=== PATIENT | female | born 1995 | race American Indian/Alaskan Native ===

== ENCOUNTER 2017-10-20 17:57 | Emergency (ER) | payer SELFPAY ==
[2017-10-20 19:15] LABS: Basophils % (Auto) 0.6 % (0.0-1.8); Eosinophils % (Auto) 1.2 % (0.0-4.3); Hematocrit 39.3 % (30.3-42.9); Hemoglobin 13.3 gm/dl (10.1-14.3); Mean Corpuscular HGB Conc 34 % (30-34); Mean Corpuscular Hemoglobin 33 pg (28-32); Mean Corpuscular Volume 97 fl (79-97); Platelet Count 273 K/mm3 (140-440); Red Blood Count 4.07 M/mm3 (3.65-5.03); Red Cell Distribution Width 13.5 % (13.2-15.2); White Blood Count 6.3 K/mm3 (4.5-11.0)
[2017-10-20 19:30] LABS: Alanine Aminotransferase 11 units/L (7-56); Albumin 4.5 g/dL (3.9-5); Albumin/Globulin Ratio 1.2 %; Alkaline Phosphatase 40 units/L (35-129); Anion Gap 18 mmol/L; BUN/Creatinine Ratio 20; Blood Urea Nitrogen 10 mg/dL (7-17); Calcium 9.4 mg/dL (8.4-10.2); Carbon Dioxide 24 mmol/L (22-30); Chloride 97.6 mmol/L (98-107); Glucose 84 mg/dL (65-100); Lipase 22 units/L (13-60); Sodium 136 mmol/L (137-145); Total Protein 8.4 g/dL (6.3-8.2)
[2017-10-20 19:36] LABS: Bilirubin,Urine NEG (Negative); Blood,Urine NEG (Negative); Ketones,Urine TR mg/dL (Negative); Leukocyte Esterase,Urine NEG (Negative); Mucus,Urine 3+ /HPF; Nitrite,Urine NEG (Negative); Protein,Urine <15 mg/dL mg/dL (Negative); Urobilinogen,Urine < 2.0 mg/dL (<2.0); WBC,Urine < 1.0 /HPF (0.0-6.0)
[2017-10-20] MEDS ORDERED: TYLENOL PO ONE (23:05)
[2017-10-20] MEDS ORDERED: TYLENOL ONE (23:08)
[2017-10-21] MEDS ORDERED: NACL 0.9% 1000 ML 1,000 ML IV ONE (03:50)
--- NOTE | 2017-10-21 05:35 | Emergency Department Report ---
ED General Adult HPI - General Chief complaint: Abdominal Pain Stated complaint: ABDOMINAL PAIN Time Seen by Provider: 10/21/17 03:22 Source: patient Mode of arrival: Ambulatory Limitations: No Limitations - History of Present Illness Initial comments: She is a 22-year-old female past medical history of appendicitis who presents with with left flank pain and lower pubic pain that has been going on for last 2 weeks. Patient states that her pelvic pain has been intermittent she denies any dysuria or any vaginal discharge. She has no nausea or vomiting she says that her lower abdominal pain as a 6 out of 10 as an achy type of pain nothing makes it better or worse. Patient states that she is sexually active she sometimes uses protection. She denies any fever or chills. Severity scale (0 -10): 7 - Related Data Previous Rx's Medication Instructions Recorded Last Taken Type HYDROcodone/APAP 5-325 [[place] 1 each PO Q4H PRN #40 tablet 04/04/16 Unknown Rx 5-325 mg TAB] Prochlorperazine [Compazine] 10 mg PO Q6H PRN #30 tablet 04/04/16 Unknown Rx Naproxen 250 mg PO BID #20 tablet 10/21/17 Unknown Rx Ondansetron [Zofran Odt] 4 mg PO Q8HR #15 tab.rapdis 10/21/17 Unknown Rx Allergies Allergy/AdvReac Type Severity Reaction Status Date / Time No Known Allergies Allergy Unverified 07/09/15 13:29 ED Review of Systems ROS: Stated complaint: ABDOMINAL PAIN Other details as noted in HPI Constitutional: denies: chills, fever Eyes: denies: eye pain, eye discharge, vision change ENT: denies: ear pain, throat pain Respiratory: denies: cough, shortness of breath, wheezing Cardiovascular: denies: chest pain, palpitations Endocrine: no symptoms reported Gastrointestinal: abdominal pain. denies: nausea, diarrhea Genitourinary: denies: urgency, dysuria, discharge Musculoskeletal: denies: back pain, joint swelling, arthralgia Skin: denies: rash, lesions Neurological: denies: headache, weakness, paresthesias Psychiatric: denies: anxiety, depression Hematological/Lymphatic: denies: easy bleeding, easy bruising ED Past Medical Hx - Past Medical History Hx Hypertension: No Hx Heart Attack/AMI: No Hx Congestive Heart Failure: No Hx Diabetes: No Hx Seizures: No Hx Psychiatric Treatment: Yes (ANXIETY, DEPRESSION) Hx Asthma: No Hx COPD: No Hx HIV: No Additional medical history: IRREGULAR HEART RATE - Surgical History Past Surgical History?: Yes Hx Appendectomy: Yes (2014) Additional Surgical History: abortions x 2 - Social History Smoking Status: Current Some Day Smoker Substance Use Type: Alcohol - Medications Home Medications: Home Medications Medication Instructions Recorded Confirmed Last Taken Type HYDROcodone/APAP 5-325 [[place] 1 each PO Q4H PRN #40 tablet 04/04/16 Unknown Rx 5-325 mg TAB] Prochlorperazine [Compazine] 10 mg PO Q6H PRN #30 tablet 04/04/16 Unknown Rx Naproxen 250 mg PO BID #20 tablet 10/21/17 Unknown Rx Ondansetron [Zofran Odt] 4 mg PO Q8HR #15 tab.rapdis 10/21/17 Unknown Rx ED Physical Exam - General Limitations: No Limitations General appearance: alert, in no apparent distress - Head Head exam: Present: atraumatic, normocephalic - Eye Eye exam: Present: normal appearance - ENT ENT exam: Present: mucous membranes moist - Neck Neck exam: Present: normal inspection - Respiratory Respiratory exam: Present: normal lung sounds bilaterally. Absent: respiratory distress - Cardiovascular Cardiovascular Exam: Present: regular rate, normal rhythm. Absent: systolic murmur, diastolic murmur, rubs, gallop - GI/Abdominal GI/Abdominal exam: Present: soft, normal bowel sounds - External exam: Present: normal external exam Speculum exam: Present: erythema, cervical discharge Bi-manual exam: Present: adnexal tenderness (left adnexal ) - Extremities Exam Extremities exam: Present: normal inspection - Back Exam Back exam: Present: normal inspection - Neurological Exam Neurological exam: Present: alert, oriented X3 - Psychiatric Psychiatric exam: Present: normal affect, normal mood - Skin Skin exam: Present: warm, dry, intact, normal color. Absent: rash ED Course Vital Signs 10/20/17 10/20/17 10/21/17 18:16 18:32 00:20 Temperature 99.0 F Pulse Rate 94 H 91 H Respiratory 14 14 Rate Blood Pressure 108/71 108/71 109/72 Blood Pressure [Right] O2 Sat by Pulse 100 100 Oximetry 10/21/17 10/21/17 10/21/17 00:24 00:30 00:45 Temperature 98.4 F Pulse Rate 82 Respiratory 19 Rate Blood Pressure 115/65 115/65 Blood Pressure 109/62 [Right] O2 Sat by Pulse 100 94 Oximetry 10/21/17 10/21/17 10/21/17 01:01 01:16 01:30 Temperature Pulse Rate Respiratory Rate Blood Pressure 115/65 115/65 115/65 Blood Pressure [Right] O2 Sat by Pulse 100 89 100 Oximetry 10/21/17 10/21/17 10/21/17 01:45 02:01 02:15 Temperature Pulse Rate Respiratory Rate Blood Pressure 115/65 115/65 115/65 Blood Pressure [Right] O2 Sat by Pulse 100 100 100 Oximetry 10/21/17 10/21/17 10/21/17 02:31 02:45 03:01 Temperature Pulse Rate Respiratory Rate Blood Pressure 115/65 115/65 115/65 Blood Pressure [Right] O2 Sat by Pulse 100 99 100 Oximetry 10/21/17 10/21/17 10/21/17 03:15 03:31 03:45 Temperature Pulse Rate Respiratory Rate Blood Pressure 115/65 115/65 115/65 Blood Pressure [Right] O2 Sat by Pulse 100 100 100 Oximetry 10/21/17 10/21/17 10/21/17 04:01 04:15 06:00 Temperature 98.5 F Pulse Rate 88 Respiratory 18 Rate Blood Pressure 115/65 115/65 Blood Pressure 115/68 [Right] O2 Sat by Pulse 100 100 100 Oximetry ED Medical Decision Making - Lab Data Result diagrams: 10/20/17 18:54 10/20/17 18:54 Lab Results 10/20/17 10/20/17 10/20/17 Range/Units 18:48 18:54 18:54 WBC 6.3 (4.5-11.0) K/mm3 RBC 4.07 (3.65-5.03) M/mm3 Hgb 13.3 (10.1-14.3) gm/dl Hct 39.3 (30.3-42.9) % MCV 97 (79-97) fl MCH 33 H (28-32) pg MCHC 34 (30-34) % RDW 13.5 (13.2-15.2) % Plt Count 273 (140-440) K/mm3 Lymph % (Auto) 36.7 H (13.4-35.0) % [place] % (Auto) 10.7 H (0.0-7.3) % Eos % (Auto) 1.2 (0.0-4.3) % Baso % (Auto) 0.6 (0.0-1.8) % Lymph # 2.3 (1.2-5.4) K/mm3 [place] # 0.7 (0.0-0.8) K/mm3 Eos # 0.1 (0.0-0.4) K/mm3 Baso # 0.0 (0.0-0.1) K/mm3 Seg Neutrophils % 50.8 (40.0-70.0) % Seg Neutrophils # 3.2 (1.8-7.7) K/mm3 Sodium 136 L (137-145) mmol/L Potassium 4.0 (3.6-5.0) mmol/L Chloride 97.6 L (98-107) mmol/L Carbon Dioxide 24 (22-30) mmol/L Anion Gap 18 mmol/L BUN 10 (7-17) mg/dL Creatinine 0.5 L (0.7-1.2) mg/dL Estimated GFR > 60 ml/min BUN/Creatinine Ratio 20 % Glucose 84 (65-100) mg/dL Calcium 9.4 (8.4-10.2) mg/dL Total Bilirubin 0.20 (0.1-1.2) mg/dL AST 19 (5-40) units/L ALT 11 (7-56) units/L Alkaline Phosphatase 40 (35-129) units/L Total Protein 8.4 H (6.3-8.2) g/dL Albumin 4.5 (3.9-5) g/dL Albumin/Globulin Ratio 1.2 % Lipase 22 (13-60) units/L Urine Color Yellow (Yellow) Urine Turbidity Clear (Clear) Urine pH 6.0 (5.0-7.0) Ur Specific [place] 1.024 (1.003-1.030) Urine Protein <15 mg/dl (Negative) mg/dL Urine Glucose (UA) Neg (Negative) mg/dL Urine Ketones Tr (Negative) mg/dL Urine Blood Neg (Negative) Urine Nitrite Neg (Negative) Urine Bilirubin Neg (Negative) Urine Urobilinogen < 2.0 (<2.0) mg/dL Ur Leukocyte Esterase Neg (Negative) Urine WBC (Auto) < 1.0 (0.0-6.0) /HPF Urine RBC (Auto) 2.0 (0.0-6.0) /HPF U Epithel Cells (Auto) 5.0 (0-13.0) /HPF Urine Mucus 3+ /HPF - Medical Decision Making Chief medical diagnosis: Cervicitis Differential medical diagnosis: UTI, metabolic abnormality, ovarian cyst pain Saray CBC, CMP, urinalysis, pelvic exam, VALENCIA gonnorrhea, VALENCIA chylamdia. 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 She had left adnexal tenderness based on patient's findings I will treat her for cervicitis discussed outpatient. Patient tolerated oral antibiotics and IM antibiotics well. Afterwards patient is feeling better I will send patient home with Naprosyn and Zofran for pain and nausea. Discussed with patient the importance of follow-up and that she can come back in 4 days and get records for the chlamydia and gonorrhea test we've drawn. Additional verbal discharge instructions were given Critical care attestation.: If time is entered above; I have spent that time in minutes in the direct care of this critically ill patient, excluding procedure time. ED Disposition Clinical Impression: Cervicitis, Pelvic pain Disposition: DC-01 TO HOME OR SELFCARE Is pt being admited?: No Does the pt Need Aspirin: No Condition: Stable Instructions: Cervicitis (ED), Abdominal Pain (ED) Prescriptions: Naproxen 250 mg PO BID #20 tablet Ondansetron [Zofran Odt] 4 mg PO Q8HR #15 tab.rapdis Referrals: DANA HORN MD [Referring] - 3-5 Days Forms: [facility] Treatment and Prevention
[2017-10-21] MEDS ORDERED: XYLOCAINE 1% MPF 5 mL INFILTRATI ONE (05:37)
[2017-10-21] MEDS ORDERED: ROCEPHIN IM ONE (05:37)
[2017-10-21] MEDS ORDERED: ZITHROMAX PO ONE (05:37)
[2017-10-21] MEDS ORDERED: ZOFRAN ODT PO ONE (05:38)
[2017-10-21] MEDS ORDERED: DIFLUCAN PO ONE (05:39)
[2017-10-21 06:02] VITALS: BP 115/68
== END 2017-10-21 06:17 | disposition home or self-care (01) ==
LOC: ED 17:57
DX: N72 Inflammatory disease of cervix uteri (principal); R10.2 Pelvic and perineal pain; F17.200 Nicotine dependence, unspecified, uncomplicated; Z98.890 Other specified postprocedural states
CPT/HCPCS: 36415; 80053; 81001; 83690; 85025; 87210; 87591; 96360; 96372; 99284; J0696; J7030; Q0162

== ENCOUNTER 2021-08-08 16:39 | Emergency (ER) | payer SELFPAY ==
--- NOTE | 2021-08-08 17:28 | Emergency Department Report ---
HPI - General Chief Complaint: Urogenital-Female Time Seen by Provider: 08/08/21 17:24 - HPI HPI: This is a 25-year-old -[place] female presents to the emergency department with complaint of a 2 to 3-day history of pelvic pain, currently 8 out of 10 in intensity. She denies any vaginal discharge, dysuria, but does complain of increased urinary frequency. No known aggravating or alleviating factors. Patient does have a history of fibroids and ovarian cyst. She has a history of an appendectomy previously. She has not taken anything for symptoms prior to presentation today. Patient complains of "irritation around my urethra." ED Past Medical Hx - Past Medical History Hx Hypertension: No Hx Heart Attack/AMI: No Hx Congestive Heart Failure: No Hx Diabetes: No Hx Seizures: No Hx Psychiatric Treatment: Yes (ANXIETY, DEPRESSION) Hx Asthma: No Hx COPD: No Hx HIV: No Additional medical history: IRREGULAR HEART RATE - Surgical History Hx Appendectomy: Yes (2014) Additional Surgical History: abortions x 2 - Social History Smoking Status: Current Some Day Smoker Substance Use Type: Alcohol - Medications Home Medications: Home Medications Medication Instructions Recorded Confirmed Last Taken Type HYDROcodone/APAP 5-325 [[place] 1 each PO Q4H PRN #40 tablet 04/04/16 Unknown Rx 5-325 mg TAB] Prochlorperazine [Compazine] 10 mg PO Q6H PRN #30 tablet 04/04/16 Unknown Rx Naproxen 250 mg PO BID #20 tablet 10/21/17 Unknown Rx Ondansetron [Zofran Odt] 4 mg PO Q8HR #15 tab.rapdis 10/21/17 Unknown Rx Ibuprofen [Motrin 600 MG tab] 600 mg PO Q8H PRN #20 tablet 08/08/21 Unknown Rx Nitrofurantoin [place]/M-Cryst 100 mg PO Q12HR #14 capsule 08/08/21 Unknown Rx [Macrobid CAP] ED Review of Systems ROS: Stated complaint: ABD PAIN/UTI Other details as noted in HPI Comment: All other systems reviewed and negative Constitutional: denies: chills, fever Eyes: denies: eye pain, vision change ENT: denies: ear pain, throat pain Respiratory: denies: cough, shortness of breath Cardiovascular: denies: chest pain, palpitations Gastrointestinal: denies: nausea, vomiting Genitourinary: frequency, other (Pelvic pain). denies: discharge Musculoskeletal: denies: back pain, arthralgia Skin: denies: rash, lesions Neurological: denies: headache, weakness Physical Exam - Physical Exam Vital Signs: Vital Signs 08/08/21 16:57 Temperature 97.9 F Pulse Rate 60 Respiratory 16 Rate Blood Pressure 108/87 [Right] O2 Sat by Pulse 98 Oximetry Physical Exam: GENERAL: The patient is well-developed well-nourished. HENT: Normocephalic. Atraumatic. Patient has moist mucous membranes. EYES: Extraocular motions are intact. NECK: Supple. Trachea is midline. CHEST/LUNGS: Clear to auscultation. There is no respiratory distress noted. HEART/CARDIOVASCULAR: Regular. There is no tachycardia. There is no murmur. ABDOMEN: Abdomen is soft, nontender. Patient has normal bowel sounds. There is no abdominal distention. SKIN: Skin is warm and dry. NEURO: The patient is awake, alert, and oriented. The patient is cooperative. The patient has no focal neurologic deficits. Normal speech. MUSCULOSKELETAL: There is no tenderness or deformity. There is no limitation range of motion. PELVIC: No labial or vaginal lesions seen. No discharge seen. Normal-appearing cervix. ED Course Vital Signs 08/08/21 16:57 Temperature 97.9 F Pulse Rate 60 Respiratory 16 Rate Blood Pressure 108/87 [Right] O2 Sat by Pulse 98 Oximetry - Reevaluation(s) Reevaluation #1: 08/08/21 20:13 Pelvic examination done with nurse Mayuri at bedside to flake drier and assist. ED Medical Decision Making - Radiology Data Radiology results: report reviewed Pelvic Ultrasound HISTORY: pelvic pain. TECHNIQUE: Grayscale and color imaging performed. COMPARISON: CT abdomen/pelvis from 04/03/2016 FINDINGS: Uterus measures 5.7 x 2.4 x 3.4 cm. The endometrial echocomplex measures 5 mm. Simple bilateral ovarian cysts are present, 1.5 cm on the right and 1.6 cm on the left. Preserved bilateral ovarian blood flow is present. No pelvic free fluid. IMPRESSION: Simple bilateral ovarian cysts. Otherwise unremarkable exam. - Medical Decision Making This patient presents with pelvic pain, increased urinary frequency, and concern for possible STD exposure. Pelvic ultrasound shows bilateral ovarian cysts but no ovarian torsion, mass, or any other acute processes. Urinalysis shows a mild urinary tract infection. Upreg negative. Pelvic examination was done without any labial or vaginal lesions seen or anything to account for her alleged inflammation around the urethra other than the UTI. The patient will be placed on Macrobid. Wet prep negative for BV, trichomoniasis, yeast. Gonorrhea/chlamydia sent but will not result for 2 to 3 days. 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 Critical Care Time: No Critical care attestation.: If time is entered above; I have spent that time in minutes in the direct care of this critically ill patient, excluding procedure time. ED Disposition Clinical Impression: Pelvic pain UTI (urinary tract infection) Qualifiers: Urinary tract infection type: acute cystitis Hematuria presence: without hematuria Qualified Code(s): N30.00 - Acute cystitis without hematuria Ovarian cyst Qualifiers: Laterality: bilateral Qualified Code(s): N83.201 - Unspecified ovarian cyst, right side; N83.202 - Unspecified ovarian cyst, left side Disposition: 01 HOME / SELF CARE / HOMELESS Is pt being admited?: No Condition: Stable Instructions: Pelvic Pain, Female, Urinary Tract Infection, Adult Additional Instructions: Please follow-up with a primary care physician in the next few days. Return to the emergency department with any worsening of your symptoms, new or concerning symptoms not addressed during this current emergency department visit, or with any acute distress. Prescriptions: Nitrofurantoin [place]/M-Cryst [Macrobid CAP] 100 mg PO Q12HR #14 capsule Ibuprofen [Motrin 600 MG tab] 600 mg PO Q8H PRN #20 tablet PRN Reason: Pain Referrals: PRIMARY CARE, [Primary Care Provider] - 3-5 Days Time of Disposition: 21:23
--- NOTE | 2021-08-08 19:42 | Ultrasound Report ---
Pelvic Ultrasound HISTORY: pelvic pain. TECHNIQUE: Grayscale and color imaging performed. COMPARISON: CT abdomen/pelvis from 04/03/2016 FINDINGS: Uterus measures 5.7 x 2.4 x 3.4 cm. The endometrial echocomplex measures 5 mm. Simple bilateral ovarian cysts are present, 1.5 cm on the right and 1.6 cm on the left. Preserved franki ateral ovarian blood flow is present. No pelvic free fluid. IMPRESSION: Simple bilateral ovarian cysts. Otherwise unremarkable exam. Signer Name: Satya Savage MD Signed: 08/08/2021 7:37 PM Workstation Name: [id number]
[2021-08-08] MEDS ORDERED: IBUPROFEN 600 MG TAB PO ONE (20:13)
[2021-08-08 20:41] LABS: HCG Qualitative,Urine Negative (Negative)
[2021-08-08 20:50] LABS: Bacteria,Urine 1+ /HPF (Negative); Bilirubin,Urine NEG (Negative); Blood,Urine NEG (Negative); Color,Urine Yellow (Yellow); Mucus,Urine 3+ /HPF
[2021-08-08 21:59] VITALS: BP 110/82
== END 2021-08-08 21:59 | disposition home or self-care (01) ==
LOC: ED 16:39
DX: N83.202 Unspecified ovarian cyst, left side (principal); R10.2 Pelvic and perineal pain; N39.0 Urinary tract infection, site not specified; F41.8 Other specified anxiety disorders; F32.9 Major depressive disorder, single episode, unspecified; I49.9 Cardiac arrhythmia, unspecified; Z98.890 Other specified postprocedural states; F17.200 Nicotine dependence, unspecified, uncomplicated
CPT/HCPCS: 76830; 81001; 81025; 87086; 87210; 87591; 93975; 99284

== ENCOUNTER 2021-11-06 23:01 | Emergency (ER) | payer SELFPAY ==
[2021-11-07] MEDS ORDERED: dexAMETHasone 20 MG/5 ML VIAL IV ONE (02:49)
[2021-11-07] MEDS ORDERED: KETOROLAC 30 MG/1 ML INJ IV ONE (02:50)
[2021-11-07] MEDS ORDERED: SODIUM CHLORIDE 0.9% 1000 ML 1,000 ML IV ONE (02:50)
--- NOTE | 2021-11-07 03:25 | Emergency Department Report ---
ED General Adult HPI - General Chief complaint: Headache Stated complaint: LEFT NECK PAIN PUI?: No Time Seen by Provider: 11/07/21 02:49 Source: patient Mode of arrival: Ambulatory Limitations: No Limitations - History of Present Illness Initial comments: 26-year-old female who presents for left-sided neck pain described at 4/10 pain exacerbated by movement. Patient now with sore throat for the past 3 days. Pain is asked by swallowing p.o. intake. Patient denies fall injury or trauma. Is been no fever no chills. There is no productive cough. - Related Data Previous Rx's Medication Instructions Recorded Last Taken Type HYDROcodone/APAP 5-325 [[place] 1 each PO Q4H PRN #40 tablet 04/04/16 Unknown Rx 5-325 mg TAB] Prochlorperazine [Compazine] 10 mg PO Q6H PRN #30 tablet 04/04/16 Unknown Rx Naproxen 250 mg PO BID #20 tablet 10/21/17 Unknown Rx Ondansetron [Zofran Odt] 4 mg PO Q8HR #15 tab.rapdis 10/21/17 Unknown Rx Ibuprofen [Motrin 600 MG tab] 600 mg PO Q8H PRN #20 tablet 08/08/21 Unknown Rx Nitrofurantoin [place]/M-Cryst 100 mg PO Q12HR #14 capsule 08/08/21 Unknown Rx [Macrobid CAP] Doxycycline Monohydrate 100 mg PO BID #14 tablet 08/15/21 Unknown Rx Ondansetron [Zofran Odt] 4 mg PO Q8HR PRN #10 tab.rapdis 08/15/21 Unknown Rx Clindamycin [Clindamycin CAP] 300 mg PO Q6H 7 Days #28 cap 11/07/21 Unknown Rx Ibuprofen [Motrin 800 MG tab] 800 mg PO Q8HR PRN #30 tablet 11/07/21 Unknown Rx dexAMETHasone [Decadron] 4 mg PO BID 3 Days #6 tablet 11/07/21 Unknown Rx Allergies Allergy/AdvReac Type Severity Reaction Status Date / Time No Known Allergies Allergy Unverified 07/09/15 13:29 ED Review of Systems ROS: Stated complaint: LEFT NECK PAIN Other details as noted in HPI Constitutional: denies: chills, fever Eyes: denies: eye pain, eye discharge, vision change ENT: congestion. denies: ear pain, throat pain Respiratory: denies: cough, shortness of breath, wheezing Cardiovascular: denies: chest pain, palpitations Endocrine: no symptoms reported Gastrointestinal: denies: abdominal pain, nausea, diarrhea Genitourinary: denies: urgency, dysuria, discharge Musculoskeletal: denies: back pain, joint swelling, arthralgia Skin: denies: rash, lesions Neurological: denies: headache, weakness, paresthesias Psychiatric: denies: anxiety, depression Hematological/Lymphatic: denies: easy bruising ED Past Medical Hx - Past Medical History Previous Medical History?: Yes Hx Hypertension: No Hx Heart Attack/AMI: No Hx Congestive Heart Failure: No Hx Diabetes: No Hx Seizures: No Hx Psychiatric Treatment: Yes (ANXIETY, DEPRESSION) Hx Asthma: No Hx COPD: No Hx HIV: No Additional medical history: IRREGULAR HEART RATE - Surgical History Past Surgical History?: Yes Hx Appendectomy: Yes (2014) Additional Surgical History: abortions x 2 - Social History Smoking Status: Current Some Day Smoker Substance Use Type: Alcohol - Medications Home Medications: Home Medications Medication Instructions Recorded Confirmed Last Taken Type HYDROcodone/APAP 5-325 [[place] 1 each PO Q4H PRN #40 tablet 04/04/16 Unknown Rx 5-325 mg TAB] Prochlorperazine [Compazine] 10 mg PO Q6H PRN #30 tablet 04/04/16 Unknown Rx Naproxen 250 mg PO BID #20 tablet 10/21/17 Unknown Rx Ondansetron [Zofran Odt] 4 mg PO Q8HR #15 tab.rapdis 10/21/17 Unknown Rx Ibuprofen [Motrin 600 MG tab] 600 mg PO Q8H PRN #20 tablet 08/08/21 Unknown Rx Nitrofurantoin [place]/M-Cryst 100 mg PO Q12HR #14 capsule 08/08/21 Unknown Rx [Macrobid CAP] Doxycycline Monohydrate 100 mg PO BID #14 tablet 08/15/21 Unknown Rx Ondansetron [Zofran Odt] 4 mg PO Q8HR PRN #10 tab.rapdis 08/15/21 Unknown Rx Clindamycin [Clindamycin CAP] 300 mg PO Q6H 7 Days #28 cap 11/07/21 Unknown Rx Ibuprofen [Motrin 800 MG tab] 800 mg PO Q8HR PRN #30 tablet 11/07/21 Unknown Rx dexAMETHasone [Decadron] 4 mg PO BID 3 Days #6 tablet 11/07/21 Unknown Rx ED Physical Exam - General Limitations: No Limitations General appearance: alert, in no apparent distress - Head Head exam: Present: atraumatic, normocephalic - Eye Eye exam: Present: PERRL, EOMI Pupils: Present: normal accommodation - ENT ENT exam: Present: normal orophraynx, mucous membranes moist, TM's normal bilaterally, normal external ear exam - Expanded ENT Exam Expanded Mouth exam: Absent: trismus Throat exam: Positive: normal inspection, tonsillar erythema, tonsillomegaly, tonsillar exudate, other (no lesions no stridor no wheezing ). Negative: R peritonsillar mass, L peritonsillar mass - Neck Neck exam: Present: normal inspection, full ROM. Absent: tenderness, lymphadenopathy, thyromegaly - Expanded Neck Exam Expanded Neck exam: Present: midline deformity. Absent: tenderness, anterior neck swelling, thyroid mass, carotid bruit, tracheal deviation - Respiratory Respiratory exam: Present: normal lung sounds bilaterally. Absent: respiratory distress, wheezes, rales, rhonchi, stridor, chest wall tenderness - Cardiovascular Cardiovascular Exam: Present: regular rate, normal rhythm, normal heart sounds. Absent: systolic murmur, diastolic murmur, rubs, gallop - GI/Abdominal GI/Abdominal exam: Present: soft, normal bowel sounds. Absent: distended, tenderness, guarding, rebound, rigid, bruit, hernia - Rectal Rectal exam: Present: deferred - Extremities Exam Extremities exam: Present: normal inspection, full ROM. Absent: tenderness - Back Exam Back exam: Present: normal inspection, full ROM. Absent: tenderness, CVA tenderness (R), CVA tenderness (L) - Neurological Exam Neurological exam: Present: alert, oriented X3, CN II-XII intact, normal gait, reflexes normal. Absent: motor sensory deficit - Psychiatric Psychiatric exam: Present: normal affect, normal mood - Skin Skin exam: Present: warm, dry, intact, normal color. Absent: rash ED Course Vital Signs 11/06/21 23:06 Temperature 98.0 F Pulse Rate 103 H Respiratory 18 Rate Blood Pressure 101/72 O2 Sat by Pulse 97 Oximetry ED Medical Decision Making - Medical Decision Making Pharynx with tonsillomegaly with exudate there is no stridor there is no wheezing airway is patent. Rapid strep pending. There is no posterior peritonsillar abscess noted. Patient will be DC'd after meds and medication treatment in ED. Pt endorses symptom improved to 2/10, airway remain patent , pt is tolerating po intake without difficulty, plan: DX , bacterial pharyngitis, tonsilitis, Dc to home rx> clindamycin, Ibuprofen prn pain , cepacol lozenges prn, follow up wtih ENT in 2-3 days, follow up with pcp in 2-3 days, return to emergency if symptoms worsen. . Critical care attestation.: If time is entered above; I have spent that time in minutes in the direct care of this critically ill patient, excluding procedure time. ED Disposition Clinical Impression: Acute bacterial tonsillitis Pharyngitis Qualifiers: Pharyngitis/tonsillitis etiology: unspecified etiology Qualified Code(s): J02.9 - Acute pharyngitis, unspecified Disposition: HOME / SELF CARE / HOMELESS Is pt being admited?: No Does the pt Need Aspirin: No Condition: Stable Instructions: Tonsillitis, Pharyngitis, [id number] Additional Instructions: Take medications as prescribed, follow-up with the ENT in 2 to 3 days. Follow- up with your primary care doctor as needed. Return to emergency department should symptoms worsen. Prescriptions: Clindamycin [Clindamycin CAP] 300 mg PO Q6H 7 Days #28 cap dexAMETHasone [Decadron] 4 mg PO BID 3 Days #6 tablet Ibuprofen [Motrin 800 MG tab] 800 mg PO Q8HR PRN #30 tablet PRN Reason: pain fever Referrals: WILLARD SANTOS MD [Staff Physician] - 3-5 Days PRIMARY CARE, [Primary Care Provider] - 3-5 Days Forms: Work/School Release Form(ED) Time of Disposition: 05:18
[2021-11-07 05:56] VITALS: BP 111/60
== END 2021-11-07 05:56 | disposition home or self-care (01) ==
LOC: ED 23:01
DX: J03.80 Acute tonsillitis due to other specified organisms (principal); B96.89 Other specified bacterial agents as the cause of diseases classified elsewhere; F41.9 Anxiety disorder, unspecified; F17.200 Nicotine dependence, unspecified, uncomplicated; F32.9 Major depressive disorder, single episode, unspecified; Z90.49 Acquired absence of other specified parts of digestive tract; Z72.89 Other problems related to lifestyle
CPT/HCPCS: 87116; 87430; 96365; 96375; 99283; J1100; J1885; J7030; J7502; Q0162

== ENCOUNTER 2021-11-19 15:26 | Emergency (ER) | payer SELFPAY ==
[2021-11-20 01:26] LABS: HCG Qualitative,Urine Negative (Negative)
[2021-11-20 01:45] LABS: Bilirubin,Urine NEG (Negative); Blood,Urine NEG (Negative); Color,Urine Yellow (Yellow); Mucus,Urine 3+ /HPF; Urobilinogen,Urine < 2.0 mg/dL (<2.0)
[2021-11-20] MEDS ORDERED: LIDOCAINE-MPF (1%) 10 MG/1 ML VIAL 5 ML INFILTRATI ONE (03:28)
--- NOTE | 2021-11-20 04:14 | Emergency Department Report ---
ED Female HPI - General Chief complaint: Urogenital-Female Stated complaint: VAGINA ISSUES Time Seen by Provider: 11/19/21 22:24 Source: patient Mode of arrival: Ambulatory Limitations: No Limitations - History of Present Illness Initial comments: 26-year-old male female Cherrie emerged from complaining of vaginal itching and vaginal discharge of unknown etiology with a suspicion of possible STD Fusilev approximately 7/day for last few days of acutely worsening waxing waning fashion. She noticed some discomfort with urination and with touching around the vaginal opening. She reports no fever, chills, sweats. No hemoptysis no hematemesis no chest pain no palpitations, no nausea or vomiting. MD Complaint: vaginal bleeding, vaginal discharge, dysuria -: Gradual Location: labia Quality: cramping, dull Consistency: constant Improves with: none Worsens with: none Are you Now?: No Associated Symptoms: vaginal discharge, dysuria. denies: abdominal pain, nausea/vomiting, loss of appetite, hematuria, syncope - Related Data Previous Rx's Medication Instructions Recorded Last Taken Type HYDROcodone/APAP 5-325 [[place] 1 each PO Q4H PRN #40 tablet 04/04/16 Unknown Rx 5-325 mg TAB] Prochlorperazine [Compazine] 10 mg PO Q6H PRN #30 tablet 04/04/16 Unknown Rx Naproxen 250 mg PO BID #20 tablet 10/21/17 Unknown Rx Ondansetron [Zofran Odt] 4 mg PO Q8HR #15 tab.rapdis 10/21/17 Unknown Rx Ibuprofen [Motrin 600 MG tab] 600 mg PO Q8H PRN #20 tablet 08/08/21 Unknown Rx Nitrofurantoin [place]/M-Cryst 100 mg PO Q12HR #14 capsule 08/08/21 Unknown Rx [Macrobid CAP] Doxycycline Monohydrate 100 mg PO BID #14 tablet 08/15/21 Unknown Rx Ondansetron [Zofran Odt] 4 mg PO Q8HR PRN #10 tab.rapdis 08/15/21 Unknown Rx Clindamycin [Clindamycin CAP] 300 mg PO Q6H 7 Days #28 cap 11/07/21 Unknown Rx Ibuprofen [Motrin 800 MG tab] 800 mg PO Q8HR PRN #30 tablet 11/07/21 Unknown Rx dexAMETHasone [Decadron] 4 mg PO BID 3 Days #6 tablet 11/07/21 Unknown Rx Azithromycin [Zithromax TAB] 1,000 mg PO ONCE #2 tablet 11/20/21 Unknown Rx metroNIDAZOLE [Flagyl] 2,000 mg PO ONCE #4 tab 11/20/21 Unknown Rx Allergies Allergy/AdvReac Type Severity Reaction Status Date / Time No Known Allergies Allergy Verified 11/19/21 16:15 ED Review of Systems ROS: Stated complaint: VAGINA ISSUES Other details as noted in HPI Comment: All other systems reviewed and negative Constitutional: denies: no symptoms reported, chills Eyes: denies: as per HPI ENT: denies: as per HPI ED Past Medical Hx - Past Medical History Hx Hypertension: No Hx Heart Attack/AMI: No Hx Congestive Heart Failure: No Hx Diabetes: No Hx Seizures: No Hx Psychiatric Treatment: Yes (ANXIETY, DEPRESSION) Hx Asthma: No Hx COPD: No Hx HIV: No Additional medical history: IRREGULAR HEART RATE - Surgical History Hx Appendectomy: Yes (2014) Additional Surgical History: abortions x 2 - Social History Smoking Status: Current Some Day Smoker Substance Use Type: Alcohol - Medications Home Medications: Home Medications Medication Instructions Recorded Confirmed Last Taken Type HYDROcodone/APAP 5-325 [[place] 1 each PO Q4H PRN #40 tablet 04/04/16 Unknown Rx 5-325 mg TAB] Prochlorperazine [Compazine] 10 mg PO Q6H PRN #30 tablet 04/04/16 Unknown Rx Naproxen 250 mg PO BID #20 tablet 10/21/17 Unknown Rx Ondansetron [Zofran Odt] 4 mg PO Q8HR #15 tab.rapdis 10/21/17 Unknown Rx Ibuprofen [Motrin 600 MG tab] 600 mg PO Q8H PRN #20 tablet 08/08/21 Unknown Rx Nitrofurantoin [place]/M-Cryst 100 mg PO Q12HR #14 capsule 08/08/21 Unknown Rx [Macrobid CAP] Doxycycline Monohydrate 100 mg PO BID #14 tablet 08/15/21 Unknown Rx Ondansetron [Zofran Odt] 4 mg PO Q8HR PRN #10 tab.rapdis 08/15/21 Unknown Rx Clindamycin [Clindamycin CAP] 300 mg PO Q6H 7 Days #28 cap 11/07/21 Unknown Rx Ibuprofen [Motrin 800 MG tab] 800 mg PO Q8HR PRN #30 tablet 11/07/21 Unknown Rx dexAMETHasone [Decadron] 4 mg PO BID 3 Days #6 tablet 11/07/21 Unknown Rx Azithromycin [Zithromax TAB] 1,000 mg PO ONCE #2 tablet 11/20/21 Unknown Rx metroNIDAZOLE [Flagyl] 2,000 mg PO ONCE #4 tab 11/20/21 Unknown Rx ED Physical Exam - General Limitations: No Limitations General appearance: alert, in no apparent distress - Head Head exam: Present: atraumatic, normocephalic - Eye Eye exam: Present: normal appearance Pupils: Present: normal accommodation - ENT ENT exam: Present: normal exam, mucous membranes moist - Neck Neck exam: Present: normal inspection, full ROM - Respiratory Respiratory exam: Present: normal lung sounds bilaterally. Absent: respiratory distress - Cardiovascular Cardiovascular Exam: Present: regular rate, normal rhythm. Absent: systolic murmur, diastolic murmur, rubs, gallop - GI/Abdominal GI/Abdominal exam: Present: soft, normal bowel sounds - External exam: Present: erythema (To the labia minora) Speculum exam: Present: vaginal discharge Bi-manual exam: Absent: cervical motion tendernes ( no lesions present.) - Extremities Exam Extremities exam: Present: normal inspection, normal capillary refill - Back Exam Back exam: Present: normal inspection. Absent: CVA tenderness (R), CVA tenderness (L) - Neurological Exam Neurological exam: Present: alert, oriented X3, CN II-XII intact - Psychiatric Psychiatric exam: Present: normal affect, normal mood - Skin Skin exam: Present: warm, dry, intact, normal color. Absent: rash ED Course Vital Signs 11/19/21 16:13 Temperature 98.9 F Pulse Rate 83 Respiratory 14 Rate Blood Pressure 139/71 [Left] O2 Sat by Pulse 100 Oximetry Critical care attestation.: If time is entered above; I have spent that time in minutes in the direct care of this critically ill patient, excluding procedure time. ED Disposition Clinical Impression: Possible exposure to STD, Trichomonal vaginitis, Vaginitis Disposition: HOME / SELF CARE / HOMELESS Is pt being admited?: No Does the pt Need Aspirin: No Condition: Stable Instructions: Bacterial Vaginosis, [id number], Trichomoniasis, Trichomonas Test, Vaginitis Additional Instructions: Chest also was positive for trichomonas and bacterial vaginosis please be sure to take the medication that has been provided to you Follow-up with health department for more STD testing Prescriptions: metroNIDAZOLE [Flagyl] 2,000 mg PO ONCE #4 tab Azithromycin [Zithromax TAB] 1,000 mg PO ONCE #2 tablet Referrals: [facility] [Provider Group] - 3-5 Days PRIMARY CARE, [Primary Care Provider] - 3-5 Days
[2021-11-20 04:23] VITALS: BP 116/92
== END 2021-11-20 04:36 | disposition home or self-care (01) ==
LOC: ED 15:26
DX: A59.01 Trichomonal vulvovaginitis (principal); Z20.2 Contact with and (suspected) exposure to infections with a predominantly sexual mode of transmission; F41.9 Anxiety disorder, unspecified; F32.9 Major depressive disorder, single episode, unspecified; F17.200 Nicotine dependence, unspecified, uncomplicated; Z72.89 Other problems related to lifestyle; Z79.899 Other long term (current) drug therapy
CPT/HCPCS: 81001; 81025; 87210; 96372; 99284; J0696; J3490